=== PATIENT | female | born 2000 | race Caucasian/White ===

== ENCOUNTER → 2024-10-28 | Outpatient (REF) | payer BC ==
[2024-10-28 18:48] LABS: IRON (FE) 58.0 UG/DL (50-170)
[2024-10-28 18:51] LABS: FREE T4 1.24 NG/DL (0.89-1.76)
== END ==
LOC: M SFHCLERA 09:06
PROVIDERS: ATTEND Student in an Organized Health Care Education/Training Program
DX: R19.4 Change in bowel habit (principal); R79.89 Other specified abnormal findings of blood chemistry

== ENCOUNTER → 2024-11-26 | Outpatient (REF) | payer BC, OTHER ==
[2024-11-28 14:17] LABS: HPV APTIMA Not Detected (Not Detected)
== END ==
LOC: M SFHCLERA 17:42
PROVIDERS: ATTEND Student in an Organized Health Care Education/Training Program
DX: Z01.419 Encounter for gynecological examination (general) (routine) without abnormal findings (principal)
CPT/HCPCS: 87624; G0123

== ENCOUNTER → 2025-03-14 | Outpatient (CLI) | payer BC ==
[2025-03-14 15:12] LABS: FREE T4 1.14 NG/DL (0.89-1.76)
== END ==
LOC: M RAD 12:47
PROVIDERS: ATTEND Student in an Organized Health Care Education/Training Program
DX: R22.1 Localized swelling, mass and lump, neck (principal); R79.89 Other specified abnormal findings of blood chemistry